=== PATIENT | male | born 1955 | race Caucasian/White ===

== ENCOUNTER 2021-12-21 11:59 | Outpatient (CLI) | payer BC, SELFPAY ==
--- NOTE | ~2021-12-21 | PE_ITS ---
EXAMINATION: PET skull to mid thigh DATE: 12/21/2021 13:52 INDICATION: Nodule of lung. TECHNIQUE: Blood glucose level was 103 mg/dL. 10.749 mCi of 18-fluorodeoxyglucose (18-FDG) was admini stered i.v. Low dose computed tomography (CT) images were acquired from the base of the brain to the proximal thighs for attenuation correction and anatomic localization. Automated exposure control was employed. Dose-length product (DLP) was 312 mGy-cm. Positron emission tomography (PET) images were ac quired in the same distribution. COMPARISON: None FINDINGS: Head/neck: There is increased activity in the major salivary glands, oral cavity, oropharynx, and radha ttis without abnormal CT correlate, likely physiologic. There are no pathologically enlarged lymph no iris. There is mild mucosal thickening in the paranasal sinuses. There is thickening and sclerosis of the genao of left maxillary sinus, consistent with chronic sinusitis. There is severe cervical spondy losis. Chest: There is moderate emphysema. There is a 16 mm nodule maximum SUV of 4.9 in right middle lobe. There is mild atelectasis bilaterally. No pleural effusion. The heart size is normal. There are coron christian artery calcifications. No pericardial effusion. There is ectasia of ascending aorta measuring 4.1 cm. There is plate and screw fixation of right clavicle. There is severe thoracic spondylosis. Abdomen/pelvis/proximal thighs: The liver, gallbladder, spleen, pancreas, adrenal glands, and kidneys are normal. There are no dilated loops of bowel. There are no pathologically enlarged lymph nodes. T here is no free intraperitoneal fluid. There are chronic bilateral L5 pars defects with grade 1 anter olisthesis of L5 on S1. There is severe lower lumbar spondylosis. IMPRESSION: 1. 16 mm nodule in right lung middle lobe with increased activity, consistent with primary bronchogen ic carcinoma. CT-guided biopsy is recommended. Reviewed, dictated and finalized at location A. IMPRESSION: 1. 16 mm nodule in right lung middle lobe with increased activity, consistent w ith primary bronchogenic carcinoma. CT-guided biopsy is recommended.
[2021-12-21 12:22] LABS: Glucose Point of Care 103 mg/dl (65-105)
== END 2021-12-21 12:00 | disposition home or self-care (01) ==
LOC: ANHIMG 12:05
PROVIDERS: PCP Family Medicine; Visit Provider Family Medicine
DX: R91.1 Solitary pulmonary nodule (principal)
CPT/HCPCS: 78815; A9552

== ENCOUNTER 2022-12-22 02:23 | Day surgery (SDC) | payer MEDICARE, SELFPAY ==
[2022-12-06 14:49] VITALS: BMI 22.4
--- NOTE | 2022-12-21 20:04 | PM.HPGS ---
History of Present Illness History of Present Illness Consent: Risks, benefits, and alternatives have been discussed and questions answered. Patient agrees to proceed with procedure. Chief complaint: neoplasm screening Narrative: Shahid Velazquez is a 67 year old male who is referred for colon cancer screening. Review of Systems Review of Systems: All systems reviewed & are unremarkable except as noted in HPI and below PMFSH Social History Social History Smoking packs per day: 1 Smoking cigarettes per day: 20.0 Years smoked: 50 Smoking pack-years: 50.00 Smoking status: Former smoker Tobacco type: cigarettes Alcohol intake: current Alcohol use details: on occasion Substance use: current Substance use type: marijuana Living arrangements: with family Spiritual care concerns: No Meds Home Medications and Allergies Home Medications Medication Instructions Recorded Confirmed Type albuterol sulfate 90 mcg/actuation 2 puff inhalation PRN PRN Wheezing 12/06/22 12/22/22 History aerosol inhaler ammonium lactate 12 % lotion 1 applic topical DAILY 12/06/22 12/22/22 History bupropion HCl (smoking deter) 150 150 mg PO BID 12/06/22 12/22/22 History mg tablet,12 hr sustained-release(smoking deterrent) cyclobenzaprine 10 mg tablet 10 mg PO DAILY 12/06/22 12/22/22 History gabapentin 400 mg capsule 400 mg PO TID 12/06/22 12/22/22 History lisinopril 20 mg tablet 20 mg PO DAILY 12/06/22 12/22/22 History tiotropium bromide 18 mcg capsule 18 mcg inhalation DAILY 12/06/22 12/22/22 History with inhalation device (Spiriva with HandiHaler) Allergies Allergy/AdvReac Type Severity Reaction Status Date / Time iohexol Allergy Anaphylaxis Verified 12/22/22 10:58 [From contrast - CT, X-RAY] reina grass Allergy Itching Uncoded 12/06/22 15:01 Exam Const: General: alert Orientation/consciousness: patient oriented x3 Resp: Auscultation: clear to auscultation bilaterally Cardio: Rhythm: regular rhythm GI: GI Palp: Yes Soft to palpation and No Tenderness to palpation present (GI) Neuro: General: patient oriented x3 Assessment and Plan Assessment and plan (1) Colon cancer screening: Code(s): Z12.11 - Encounter for screening for malignant neoplasm of colon Status: Acute Assessment and Plan: Colonoscopy with possible biopsy or polypectomy or cautery or injection of substances.
[2022-12-22 10:59] VITALS: BP 131/85; PULSE 99; RESP 18; TEMP 36.3; O2SAT 100; BMI 21.7
[2022-12-22] MEDS: LACTATED RINGERS 1,000 ML 150 ML IV CONT (11:18)
--- NOTE | 2022-12-22 11:55 | P.PNAN_ITS ---
Anes - Initial Pre Proc Eval Procedure: Operation Date: 12/22/22 12:30 Proposed Procedures p Screening Colonoscopy - Maikel Benitez MD Date/Time: 12/22/22 11:55 Surgeon: Maikel Benitez MD Pre Op Diagnosis: neoplasm screening Patient Data Age: 67 Gender: M Height: 1.7 m Weight: 63 kg Last Vital Signs Temp 97.3 F L 12/22/22 10:59 Pulse 99 12/22/22 10:59 Resp 18 12/22/22 10:59 BP 131/85 12/22/22 10:59 Pulse Ox 100 12/22/22 10:59 O2 Del Method Room Air 12/22/22 10:59 Allergies Allergy/AdvReac Type Severity Reaction Status Date / Time iohexol Allergy Anaphylaxis Verified 12/22/22 10:58 [From contrast - CT, X-RAY] reina grass Allergy Itching Uncoded 12/06/22 15:01 Home Medications Medication Instructions Recorded Confirmed Type albuterol sulfate 90 mcg/actuation 2 puff inhalation PRN PRN Wheezing 12/06/22 12/22/22 History aerosol inhaler ammonium lactate 12 % lotion 1 applic topical DAILY 12/06/22 12/22/22 History bupropion HCl (smoking deter) 150 150 mg PO BID 12/06/22 12/22/22 History mg tablet,12 hr sustained-release(smoking deterrent) cyclobenzaprine 10 mg tablet 10 mg PO DAILY 12/06/22 12/22/22 History gabapentin 400 mg capsule 400 mg PO TID 12/06/22 12/22/22 History lisinopril 20 mg tablet 20 mg PO DAILY 12/06/22 12/22/22 History tiotropium bromide 18 mcg capsule 18 mcg inhalation DAILY 12/06/22 12/22/22 History with inhalation device (Spiriva with HandiHaler) Patient hx anesthesia problems: none Family hx anesthesia problems: none Results Review: All pre-operative results and documents have been reviewed as part of the pre- operative evaluation. [facility] Social History Social History Smoking packs per day: 1 Smoking cigarettes per day: 20.0 Years smoked: 50 Smoking pack-years: 50.00 Smoking status: Former smoker Tobacco type: cigarettes Alcohol intake: current Alcohol use details: on occasion Substance use: current Substance use type: marijuana Living arrangements: with family Spiritual care concerns: No Anes - Eval Final PreProcedure Day of Procedure 12/22/22 11:55 Patient weight: normal Heart: regular rate and rhythm Lungs: clear to auscultation Airway: Mallampati scale class II Neurological: alert and oriented Last oral intake: >/= 8 hours ASA classification: III Emergent: no Anesthetic plan: proceed Anesthesia type and monitoring: general GIVS and standard monitoring Results Review: All pre-operative results and documents have been reviewed as part of the pre- operative evaluation. Informed Consent: The patient's anesthetic plan and its attendant risks and benefits were discussed with the patient/family/POA. Questions were solicited and answers provided to the satisfaction of the patient/family/POA.
[2022-12-22 12:17] VITALS: BP 117/65; PULSE 88; RESP 18; O2SAT 97
[2022-12-22 12:27] VITALS: BP 121/83; PULSE 85; RESP 20; O2SAT 98
[2022-12-22 12:37] VITALS: BP 124/83; PULSE 87; RESP 21; O2SAT 98
== END 2022-12-22 12:52 | disposition home or self-care (01) ==
PROVIDERS: PCP Family Medicine; Visit Provider Internal Medicine Gastroenterology
PROC: 0DJD8ZZ Inspection of Lower Intestinal Tract, Via Natural or Artificial Opening Endoscopic (ICD-10-PCS; CPT 45378; principal; 2022-12-22 12:30)
DX: Z12.11 Encounter for screening for malignant neoplasm of colon (principal); K64.8 Other hemorrhoids; K57.30 Diverticulosis of large intestine without perforation or abscess without bleeding; K62.1 Rectal polyp; Z95.1 Presence of aortocoronary bypass graft; Z87.891 Personal history of nicotine dependence; F12.90 Cannabis use, unspecified, uncomplicated
CPT/HCPCS: 45380; 88305; J2704; J7120